=== PATIENT | female | born 1965 ===

== ENCOUNTER 2017-05-23 08:51 | Outpatient (CLI) | payer BC ==
[~2017-05-23 08:51] MED LIST: FERRIC CARBOXYMALTOSE 750 MG in NORMAL SALINE 250 ML IV PRN; NORMAL SALINE 250 ML IV PRN
[2017-05-23 09:20] VITALS: BP 135/82
== END 2017-05-23 09:45 | disposition home or self-care (01) ==
LOC: II 08:51
PROVIDERS: ATTEND Internal Medicine
PROC: 3E033GC Introduction of Other Therapeutic Substance into Peripheral Vein, Percutaneous Approach (ICD-10-PCS; principal; 2017-05-23)
DX: D50.0 Iron deficiency anemia secondary to blood loss (chronic) (principal); K90.9 Intestinal malabsorption, unspecified
CPT/HCPCS: 96365; J7050; J1439

== ENCOUNTER 2017-05-30 09:02 | Outpatient (CLI) | payer BC ==
[2017-05-30 11:35] VITALS: BP 143/75
== END 2017-05-30 11:37 | disposition home or self-care (01) ==
LOC: II 09:02 → 5TH 09:04 → II 11:37
PROVIDERS: ATTEND Internal Medicine
PROC: 3E033GC Introduction of Other Therapeutic Substance into Peripheral Vein, Percutaneous Approach (ICD-10-PCS; principal; 2017-05-30)
DX: D50.0 Iron deficiency anemia secondary to blood loss (chronic) (principal); K90.9 Intestinal malabsorption, unspecified
CPT/HCPCS: 96365; J7050; J1439